=== PATIENT | male | born 1960 | race Caucasian/White ===

== ENCOUNTER 2024-07-04 07:00 | Outpatient (CLI) | payer OTHER, SELFPAY ==
--- NOTE | ~2024-07-04 | MR_ITS ---
MRI of the left shoulder Technique: Axial proton-density fat-sat images, coronal proton density fat-sat and T2 fat-sat images, and sagittal T1-weighted and T2 fat-sat images were acquired. Clinical History: Impingement syndrome Findings: There is advanced AC joint degenerative change, but productive change of the distal clavicl e, and subacromial spur. Coracoclavicular, coracoacromial, and coracohumeral ligaments are intact. There is mild supraspinatus/infraspinatus tendinosis, without partial or full-thickness tear. Subscap ularis tendon is intact. Tendon of the long head of the biceps is intact. There is tear of the posterior superior labrum, probably extending to the superior aspect. There is thickening and increased signal inferior glenohumeral ligament. No joint effusion or degener ative change of the glenohumeral joint. No subacromial/subdeltoid bursitis. No muscle atrophy or jennifer a. Impression: Thickening and increased signal of the inferior glenohumeral ligament suggests adhesive capsulitis. Probable posterior superior labral tear extending to the superior aspect. Advanced AC joint degenerative change. Reviewed, dictated and finalized at location . Impression: Thickening and increased signal of the inferior glenohumeral ligament suggests adhesive capsulitis. Probable posterior superior labral tear extending to the superior aspect. Advanced AC joint degenerative change.
== END 2024-07-04 07:01 | disposition home or self-care (01) ==
PROVIDERS: PCP Internal Medicine
DX: M75.42 Impingement syndrome of left shoulder (principal); M19.012 Primary osteoarthritis, left shoulder
CPT/HCPCS: 73221